=== PATIENT | female | born 1955 | race Caucasian/White ===

== ENCOUNTER → 2018-11-14 | Outpatient (CLI) | payer OTHER ==
[~2018-11-14] MED LIST: AMOXICILLI250 MG/51 PO; BUFFERED ASPIR325 M1 PO; COUMADIN; FLEXERIL; LEVOTHYROXINE PO; OXYCONTIN10 MG PO
== END ==
LOC: COL.PUL 11:20
DX: Z02.71 Encounter for disability determination (principal); M51.36 Other intervertebral disc degeneration, lumbar region; M41.86 Other forms of scoliosis, lumbar region; Z98.890 Other specified postprocedural states

== ENCOUNTER → 2021-07-10 | Outpatient (CLI) | payer MEDICARE | LOC: COL.RAD 10:07 | DX: M16.12 Unilateral primary osteoarthritis, left hip (principal) | CPT/HCPCS: J3301; Q9967 ==